=== PATIENT | female | born 1975 | race Caucasian/White ===

== ENCOUNTER 2018-01-30 15:13 | Emergency (ER) | payer MEDICAID ==
[~2018-01-30] VITALS: Ht 157.5 cm; Wt 93.9 kg
[~2018-01-30 15:13] MED LIST: NAPR-54 PO; NITR100C7 PO
[2018-01-30 15:16] VITALS: BP 138/73
--- NOTE | 2018-01-30 15:17 | NUR ---
PT CAME TO ER WITH C/O OF CHEST PAIN THAT HAD STARTED 2 DAYS AGO PT STATING 8/10 CHEST PAIN ON AND OFF. SHE HAS ALSO C/O OF SOB. PT HAS NO HISTORY MEDICALLY AND NKA. PT AMBULATED TO BED 3
--- NOTE | 2018-01-30 15:20 | NUR ---
PT AMBULATED TO BED 3
--- NOTE | 2018-01-30 15:25 | NUR ---
EKG DONE AT BEDSIDE NOTED WITH SINUS TERRANCE RYTHM.
--- NOTE | 2018-01-30 15:30 | NUR ---
LAB DRAWS DONE AT BEDSIDE.
[2018-01-30] MEDS ORDERED: LORazepam 2 MG/ML VIAL IVP ONE (16:05)
[2018-01-30 16:41] LABS: BASOPHILS % (AUTO) 0.6 % (0.0-2.0); EOSINOPHILS # (AUTO) 0.1 K/uL (0-0.4); EOSINOPHILS % (AUTO) 1.1 % (0.0-4.0); HEMATOCRIT 42.9 % (36-48); HEMOGLOBIN 14.4 g/dL (12.0-16.0); LYMPHOCYTES # (AUTO) 1.7 K/uL (2.5-16.5); LYMPHOCYTES % (AUTO) 27.6 % (20.5-51.1); MEAN CORPUSCULAR HEMOGLOBIN 29 pg (27-31); MEAN CORPUSCULAR HGB CONC 34 g/dL (33-37); MEAN CORPUSCULAR VOLUME 86.5 fL (80-94); MONOCYTES # (AUTO) 0.5 K/uL (0.8-1.0); MONOCYTES % (AUTO) 8.4 % (1.7-9.3); NEUTROPHILS # (AUTO) 3.8 K/uL (1.8-7.7); NEUTROPHILS % (AUTO) 62.3 % (42.2-75.2); PLATELET COUNT (AUTO) 233 K/uL (140-450); RED BLOOD CELL COUNT(AUTO) 4.96 MIL/uL (4.20-5.40); RED CELL DISTRIBUTION WIDTH 13.6 % (11.6-13.7); WHITE BLOOD COUNT (AUTO) 6.1 K/uL (4.8-10.8)
--- NOTE | 2018-01-30 17:04 | NUR ---
LAB CALLED NEED TO REDO VIALS THAT HAVE HEMODIALYSISED.
--- NOTE | 2018-01-30 17:17 | NUR ---
LABS AT BEDSIDE REDRAWING LABS
[2018-01-30 17:39] LABS: PROTHROMBIN TIME 9.9 secs (10.8-13.4)
[2018-01-30] MEDS ORDERED: ALBUTEROL 0.083% 2.5 MG/3 ML NEBU INH ONE (18:00)
[2018-01-30 18:16] LABS: ANION GAP 10.3 (8-16); CARBON DIOXIDE 25.4 mmol/L (21-32); CREATININE 0.7 mg/dL (0.6-1.3); POTASSIUM 3.7 mmol/L (3.5-5.1)
[2018-01-30 18:24] LABS: ALBUMIN 3.8 g/dL (3.4-5.0); TOTAL BILIRUBIN 0.3 mg/dL (0.0-1.0)
--- NOTE | 2018-01-30 18:46 | NUR ---
PENDING D/C NOTED. NO D/C PAPERS AVAULABLE. AWAITING ON ER
--- NOTE | 2018-01-30 18:59 | NUR ---
Patient discharged with v/s stable. Written and verbal after care instructions given and explained. Patient alert, oriented and verbalized understanding of instructions. Ambulatory with steady gait. All questions addressed prior to discharge. ID band removed. Patient advised to follow up with PMD. Rx of PREDNISONE AND ALBUTEROL given. Patient educated on indication of medication including possible reaction and side effects. Opportunity to ask questions provided and answered.
[2018-01-30 19:00] VITALS: BP 120/63
== END 2018-01-30 18:59 | disposition home or self-care (01) ==
LOC: MED 15:13
DX: J98.01 Acute bronchospasm (principal); Z90.49 Acquired absence of other specified parts of digestive tract
CPT/HCPCS: 36415; 71045; 80053; 83880; 84484; 85025; 85610; 85730; 93005; 96374; 99285; J2060; J7613; Q0092

== ENCOUNTER 2018-07-03 14:03 | Emergency (ER) | payer MEDICAID ==
[~2018-07-03] VITALS: Ht 160 cm; Wt 96.2 kg
[2018-07-03 14:17] VITALS: BP 149/82
--- NOTE | 2018-07-03 14:21 | NUR ---
PATIENT TAKEN TO BED #2
--- NOTE | 2018-07-03 14:30 | NUR ---
PT. CAME INTO THE ED DUE TO SOBX 1 DAY. PT. STATES " I HAVE BEEN SHORT OF BREATHE ON AND OFF BUT IT GOES AWAY BUT YESTERDAY IT GOT WORSE SO I DECIDED TO COME IN". PT. DOES NOT HAVE ANY PAIN AT THIS TIME. PT. HAS A NON PRODUCTIVE COUGH, LS: DIMINISHED THROUGHOUT. RR EVEN AND UNLABORED, SYMMETRICAL CHEST RISE NOTED, ABLE TO SPEAK IN FULL AND COMPLETE SENTENCES. 02 SAT : 98% VIA ROOM AIR AT THIS TIME. ER MD NOTIFIED. BED IN LOWEST POSITION. WILL CONTINUE TO MONITOR.
[2018-07-03] MEDS ORDERED: ALBUTEROL 0.083% 2.5 MG/3 ML NEBU INH ONE (15:35)
[2018-07-03] MEDS ORDERED: predniSONE 20 MG TAB PO ONE (15:35)
[2018-07-03] MEDS ORDERED: IPRATROPIUM 0.02% 0.5 MG/2.5 ML NEBU INH ONE (15:35)
--- NOTE | 2018-07-03 15:42 | NUR ---
CALLED RT FOR BREATHING TREATMENT
--- NOTE | 2018-07-03 15:54 | NUR ---
RT AT BEDSIDE AT THIS TIME.
--- NOTE | 2018-07-03 16:31 | NUR ---
PT. RESTING COMFORTABLY IN BED. PT STATES " I FEEL BETTER AFTER THE BREATHING TREATMENT". ER MD NOTIFIED. VSS. WILL CONTINUE TO MONITOR.
--- NOTE | 2018-07-03 17:18 | NUR ---
PT. RESTING COMFORTABLY IN BED , RR EVEN AND UNLABORED. WILL CONTINUE TO MONITOR. VSS
--- NOTE | 2018-07-03 18:12 | NUR ---
Patient discharged with v/s stable. Written and verbal after care instructions given and explained. Patient alert, oriented and verbalized understanding of instructions. Ambulatory with steady gait. All questions addressed prior to discharge. ID band removed. Patient advised to follow up with PMD. Rx of PREDNISONE , AND ALBUTEROL given. Patient educated on indication of medication including possible reaction and side effects. Opportunity to ask questions provided and answered.
[2018-07-03 18:16] VITALS: BP 140/86
== END 2018-07-03 18:12 | disposition home or self-care (01) ==
LOC: MED 14:03
DX: J20.9 Acute bronchitis, unspecified (principal); J45.909 Unspecified asthma, uncomplicated; Z79.899 Other long term (current) drug therapy
CPT/HCPCS: 71045; 94640; 99283; J7512; J7613; J7644; Q0092

== ENCOUNTER 2019-04-07 13:58 | Emergency (ER) | payer MEDICAID ==
[~2019-04-07] VITALS: Ht 157.5 cm; Wt 95.3 kg
[2019-04-07 14:06] VITALS: BP 132/74
--- NOTE | 2019-04-07 14:45 | NUR ---
DANIELE VAZ EVALUATING PT AT BEDSIDE.
--- NOTE | 2019-04-07 14:49 | NUR ---
PATIENT PRESENTS TO ED WITH C/O COUGH AND RUNNY NOSE X 2 WEEKS. DENIES N/V/; PT DENIES ANY FEVER; AFEBRILE AT THIS TIME. PATIENT STATES CHEST PAIN OF 5/10 ONLY WHEN COUGHING; VSS; PATIENT POSITIONED FOR COMFORT; HOB ELEVATED; BEDRAILS UP X1; BED DOWN. PENDING ER MD EVALUATION.
[2019-04-07] MEDS ORDERED: ALBUTEROL 0.083% 2.5 MG/3 ML NEBU INH ONE (14:50)
[2019-04-07 16:02] VITALS: BP 108/58
--- NOTE | 2019-04-07 16:03 | NUR ---
Patient discharged with v/s stable. Written and verbal after care instructions given and explained. Patient alert, oriented and verbalized understanding of instructions. Ambulatory with steady gait. All questions addressed prior to discharge. ID band removed. Patient advised to follow up with PMD. Rx of ventolin HFA INH, Medrol and promethazine syrup given. Patient educated on indication of medication including possible reaction and side effects. Opportunity to ask questions provided and answered.
== END 2019-04-07 16:03 | disposition home or self-care (01) ==
LOC: MED 13:58
DX: J20.9 Acute bronchitis, unspecified (principal); J02.9 Acute pharyngitis, unspecified; Z79.1 Long term (current) use of non-steroidal anti-inflammatories (NSAID); Z79.2 Long term (current) use of antibiotics
CPT/HCPCS: 71045; 94640; 99283; J7613; Q0092; 81025

== ENCOUNTER 2019-05-10 11:36 | Emergency (ER) | payer SELFPAY ==
[~2019-05-10] VITALS: Ht 160 cm; Wt 93.0 kg
[2019-05-10 11:40] VITALS: BP 112/81
--- NOTE | 2019-05-10 13:25 | NUR ---
PT IS A 43 Y/O FEMALE WHO PRESENTS TO THE ED C/O BUG BITE. PT STATES THAT SHE HAD A BITE TO THE BACK OF THE R KNEE X4 DAYS. PT REPORTS POPPING IT WITH PUS AND BLOOD. PT REPORTS 10/10 ACHING R KNEE PAIN THAT DOES NOT RADIATE. NOTED REDNESS AND TENDERNESS TO SITE. PT AWAKE AND ALERT, RR EVEN/UNLABORED. PT REPOSITIONED FOR COMFORT, BED IN LOWEST POSITION. ER MD DR. CHAVEZ NOTIFIED. WILL CONTINUE TO MONITOR. HX: NONE TX: NONE
[2019-05-10] MEDS ORDERED: LIDOCAINE 1% 500 MG/50 ML VIAL INJ SCH (13:35)
[2019-05-10] MEDS ORDERED: IBUPROFEN 800 MG TAB PO ONE (13:40)
[2019-05-10] MEDS ORDERED: LIDOCAINE MPF 1% - 5 mL VIAL 10 ML ONE (14:15)
--- NOTE | 2019-05-10 14:45 | NUR ---
PT RESTING IN BED, IN STABLE CONDITION
[2019-05-10 15:00] VITALS: BP 118/84
--- NOTE | 2019-05-10 15:00 | NUR ---
Patient discharged VVS. S/P I&D to right posterior knee covered with dry dressing, no drainage noted, tolerated procedure well. Written and verbal after care instructions given and explained. Patient AAOx4, verbalized understanding of instructions. Ambulatory with steady gait. All questions addressed prior to discharge. ID band removed. Patient advised to follow up with PMD. Rx of Bactrim DS 800mg-160mg tablet and motrin 800mg given. Pt provided with med ASE and benefits. Opportunity to ask questions provided and answered.
== END 2019-05-10 15:00 | disposition home or self-care (01) ==
LOC: MED 11:36
DX: L02.415 Cutaneous abscess of right lower limb (principal); J45.909 Unspecified asthma, uncomplicated; Z79.899 Other long term (current) drug therapy
CPT/HCPCS: 10060; 99283; J2001

== ENCOUNTER 2019-05-11 05:44 | Emergency (ER) | payer SELFPAY ==
[~2019-05-11] VITALS: Ht 160 cm; Wt 93.0 kg
[2019-05-11 05:50] VITALS: BP 117/65
--- NOTE | 2019-05-11 05:50 | NUR ---
TO BED # 03 AMBULATORY
--- NOTE | 2019-05-11 06:00 | NUR ---
PATIENT PRESENTS TO ED FOR WOUND CHECK, S/P I AND D RIGHT POSTERIOR THIGH YESTERDAY. DENIES N/V/D; SKIN IS PINK/WARM/DRY; AAOX4. PATIENT STATES PAIN OF 5/10 AT THIS TIME; VSS; PATIENT POSITIONED FOR COMFORT; HOB ELEVATED; BEDRAILS UP X2; BED DOWN. ER MD MADE AWARE OF PT STATUS.
--- NOTE | 2019-05-11 06:05 | NUR ---
Dr. Moreno examining patient.
[2019-05-11 06:25] VITALS: BP 117/65
--- NOTE | 2019-05-11 06:25 | NUR ---
Patient discharged with v/s stable. Written and verbal after care instructions given and explained. Patient verbalized understanding. Ambulatory with steady gait. All questions addressed prior to discharge. Advised to follow up with PMD.
== END 2019-05-11 06:25 | disposition home or self-care (01) ==
LOC: MED 05:44
DX: L02.415 Cutaneous abscess of right lower limb (principal); Z48.01 Encounter for change or removal of surgical wound dressing; J45.909 Unspecified asthma, uncomplicated; Z79.899 Other long term (current) drug therapy
CPT/HCPCS: 99282

== ENCOUNTER 2019-05-12 13:25 | Emergency (ER) | payer SELFPAY ==
[~2019-05-12] VITALS: Ht 160 cm; Wt 96.7 kg
[2019-05-12 13:33] VITALS: BP 121/74
--- NOTE | 2019-05-12 13:40 | NUR ---
PATIENT AMBULATED TO BED 9
--- NOTE | 2019-05-12 13:58 | NUR ---
RETURNED TODAY FOR F/U WOUND CARE---SEEN MAY 09 AND FOR WOUND I&D THEN DRESSING CHANGE---PT ADMITS PAIN HAD DECREASED--AMBULATORY WITH STEADY GAIT.
[2019-05-12 14:00] VITALS: BP 121/74
== END 2019-05-12 14:00 | disposition home or self-care (01) ==
LOC: MED 13:25
DX: L02.415 Cutaneous abscess of right lower limb (principal); J45.909 Unspecified asthma, uncomplicated; Z79.2 Long term (current) use of antibiotics; Z88.6 Allergy status to analgesic agent
CPT/HCPCS: 99281

== ENCOUNTER 2019-05-14 17:29 | Emergency (ER) | payer SELFPAY ==
[~2019-05-14] VITALS: Ht 162.6 cm; Wt 96.2 kg
[2019-05-14 17:46] VITALS: BP 113/74
--- NOTE | 2019-05-14 17:49 | NUR ---
PT TO WAIT IN ER LOBBY. AA0X4. VSS
--- NOTE | 2019-05-14 18:36 | NUR ---
PATIENT AMBULATED TO BED 3 AT THIS TIME.
--- NOTE | 2019-05-14 18:45 | NUR ---
PT C/O WOUND CHECK AFTER I&D PERFORMED ON SATURDAY. PAIN 12/21. SITE COVERED WITH BANDAGE AT THIS TIME. VSS; PATIENT POSITIONED FOR COMFORT; HOB ELEVATED; BEDRAILS UP X1; BED DOWN. ER MD MADE AWARE OF PT STATUS.
--- NOTE | 2019-05-14 19:16 | NUR ---
REPORT GIVEN TO POOJA JACQUES. TRANSFERED CARE AT THIS TIME.
--- NOTE | 2019-05-14 21:11 | NUR ---
Dr. Mena examining patient.
[2019-05-14] MEDS: LIDOCAINE/EPI 1% 1:100000 20 ML VIAL INJ STA (23:15)
--- NOTE | 2019-05-14 23:15 | NUR ---
MD @ bedside. performed, I/D on wound to posterior of L thigh and RLQ abdomen. Lidocaine admin by MD, minimal serosanguinous drainage noted. L thigh packed and 4x4 dressing placed, secured by tape. RLQ abdomen wound 4x4 dressing placed, scant serosanguinous drainage noted. pt tolerated procedure well. Gurney locked and in lowest position.
[2019-05-14 23:40] VITALS: BP 108/62
--- NOTE | 2019-05-14 23:40 | NUR ---
Patient discharged with v/s stable. Written and verbal after care instructions given and explained. Patient verbalized understanding. Ambulatory with steady gait. All questions addressed prior to discharge. Advised to follow up ON SATURDAY FOR FOLLOWUP WOUND CHECK.
== END 2019-05-14 23:40 | disposition home or self-care (01) ==
LOC: MED 17:29
DX: L02.416 Cutaneous abscess of left lower limb (principal); M25.562 Pain in left knee; L02.211 Cutaneous abscess of abdominal wall; J45.909 Unspecified asthma, uncomplicated; Z79.2 Long term (current) use of antibiotics; Z79.1 Long term (current) use of non-steroidal anti-inflammatories (NSAID)
CPT/HCPCS: 99283; J2001

== ENCOUNTER 2019-05-16 15:52 | Emergency (ER) | payer MEDICAID ==
[~2019-05-16] VITALS: Ht 160 cm; Wt 96.2 kg
[2019-05-16 16:00] VITALS: BP 119/80
--- NOTE | 2019-05-16 16:20 | NUR ---
RETURNING FOR WOUND RECHECK. PT WAS HERE IN [facility] 05/10/2019 FOR ABSCESS DRAINAGE AND PACKING TO BACK OF R KNEE. PT CAME BACK ON 05/12/2019 FOR WOUND RECHECK, WOUND PACKING WAS DONE DUE TO WOUND NOT HEALING WELL AND WAS TOLD TO COME BACK IN 2 DAYS FOR F/U.
--- NOTE | 2019-05-16 16:45 | NUR ---
LIDOCAINE AND SUTURE KIT AT BEDSIDE
[2019-05-16] MEDS ORDERED: LIDOCAINE MPF 1% - 5 mL VIAL 10 ML ONE (16:51)
--- NOTE | 2019-05-16 16:52 | NUR ---
DR. OWEN AT BEDSIDE PERFORMING SUTURE/PACKING
[2019-05-16] MEDS ORDERED: LIDOCAINE MPF 1% 5mL VIAL INJ ONE ×2 (16:55→17:15)
[2019-05-16] MEDS ORDERED: BACITRACIN OINT 500 UNITS/GM PKT TP ONE ×2 (17:15→17:19)
[2019-05-16 17:19] VITALS: BP 119/80
== END 2019-05-16 17:20 | disposition home or self-care (01) ==
LOC: MED 15:52
DX: S81.011A Laceration without foreign body, right knee, initial encounter (principal); J45.909 Unspecified asthma, uncomplicated; Z79.899 Other long term (current) drug therapy; Y83.8 Other surgical procedures as the cause of abnormal reaction of the patient, or of later complication, without mention of misadventure at the time of the procedure
CPT/HCPCS: 12001; 99283; J2001

== ENCOUNTER 2019-05-24 12:15 | Emergency (ER) | payer MEDICAID ==
[~2019-05-24] VITALS: Ht 157.5 cm; Wt 97.5 kg
[2019-05-24 12:27] VITALS: BP 109/57
--- NOTE | 2019-05-24 12:31 | NUR ---
WAIT AT LOBBY
--- NOTE | 2019-05-24 12:53 | NUR ---
PT AMB TO BED 6
--- NOTE | 2019-05-24 12:55 | NUR ---
BIB FAMILY FOR SUTURE REMOVAL AT BACK OF RIGHT LEG. SKIN IS PINK/WARM/DRY; AAOX4 WITH EVEN AND STEADY GAIT; PATIENT STATES PAIN OF 0/10 AT THIS TIME; PATIENT POSITIONED FOR COMFORT; HOB ELEVATED; BEDRAILS UP X1; BED DOWN. ER MD MADE AWARE OF PT STATUS.
--- NOTE | 2019-05-24 13:03 | NUR ---
DR OWEN AT BEDSIDE
[2019-05-24] MEDS ORDERED: BACITRACIN OINT 500 UNITS/GM PKT TP ONE (13:20)
--- NOTE | 2019-05-24 13:25 | NUR ---
SITE CLEANED AND WRAPPED BY TIMOTHY BURRIS
[2019-05-24 13:28] VITALS: BP 112/60
--- NOTE | 2019-05-24 13:28 | NUR ---
Patient discharged with v/s stable. Written and verbal after care instructions given and explained. Patient alert, oriented and verbalized understanding of instructions. Ambulatory with steady gait. All questions addressed prior to discharge. ID band removed. Patient advised to follow up with PMD. Rx of BACITRACIN given. Patient educated on indication of medication including possible reaction and side effects. Opportunity to ask questions provided and answered. PT INSTRUCTED TO CONTINUE TAKING ANTIBIOTICS, CONTINUE TO WARM COMPRESS TO BACK OF LEG.
[2019-05-24] MEDS ORDERED: NEOMYCIN/POLYMYXIN/BACITRACIN 0.9 GM/1 PKT TP ONE ×2 (13:32→13:35)
== END 2019-05-24 13:28 | disposition home or self-care (01) ==
LOC: MED 12:15
DX: S81.011D Laceration without foreign body, right knee, subsequent encounter (principal); J45.909 Unspecified asthma, uncomplicated; Z79.899 Other long term (current) drug therapy; X58.XXXD Exposure to other specified factors, subsequent encounter
CPT/HCPCS: 99283

== ENCOUNTER 2020-11-15 13:24 | Emergency (ER) | payer MEDICAID ==
[~2020-11-15] VITALS: Ht 157.5 cm; Wt 99.8 kg
[2020-11-15 13:28] VITALS: BP 131/82
--- NOTE | 2020-11-15 13:29 | NUR ---
Patient ambulated to bed 3.
--- NOTE | 2020-11-15 13:35 | NUR ---
44 Y/O F COMING IN FROM HOME WITH C/C SHORTNESS OF BREATH. PT STATES SHE TESTED POSITIVE FOR COVID ON 10/19/2020, AND TESTED NEGATIVE ON 11/02/2020. PT STATES 4 DAYS AGO, SHE NOTICED SHORTNESS OF BREATH UPON EXERTION DURING WORK. PT DENIES CHEST PAIN, ABDOMINAL PAIN, DIZZINESS, BLURRY VISION, HEADACHE, FEVER/CHILLS, COLD LIKE SYMPTOMS. 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 LUNG SOUNDS CTA. EQUAL CHEST RISE AND FALL, RESPIRATIONS EVEN/UNLABORED. BED LOCKED IN LOWEST POSITION, SIDE RAILS X 1, CALL LIGHT IN REACH. PMH/MEDS: DENIES SCAR
--- NOTE | 2020-11-15 13:45 | NUR ---
ERMD AT BEDSIDE EVALUATING PATIENT.
--- NOTE | 2020-11-15 14:11 | NUR ---
Note undone in EDM - 11/15/20 at 1411 by [facility] 44 Y/O F COMING IN FROM HOME WITH C/C SHORTNESS OF BREATH. PT STATES SHE TESTED POSITIVE FOR COVID ON 10/19/2020, AND TESTED NEGATIVE ON 11/02/2020. PT STATES 4 DAYS AGO, SHE NOTICED SHORTNESS OF BREATH UPON EXERTION DURING WORK. PT DENIES CHEST PAIN, ABDOMINAL PAIN, DIZZINESS, BLURRY VISION, HEADACHE, FEVER/CHILLS, COLD LIKE SYMPTOMS. 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 LUNG SOUNDS CTA. EQUAL CHEST RISE AND FALL, RESPIRATIONS EVEN/UNLABORED. BED LOCKED IN LOWEST POSITION, SIDE RAILS X 1, CALL LIGHT IN REACH. PMH/MEDS: DENIES SCAR
--- NOTE | 2020-11-15 14:15 | NUR ---
PT RESTING IN POSITION OF COMFORT. ALL PT NEEDS MET AT THIS TIME. PLANNING MANAGER IN PLACE. BED LOCKED IN LOWEST POSITION, SIDE RAILS X 1.
[2020-11-15 14:17] VITALS: BP 127/78
== END 2020-11-15 14:17 | disposition home or self-care (01) ==
LOC: MED 13:24
DX: R06.00 Dyspnea, unspecified (principal); Z79.899 Other long term (current) drug therapy
CPT/HCPCS: 99283

== ENCOUNTER 2021-01-25 15:51 | Emergency (ER) | payer MEDICAID ==
[~2021-01-25] VITALS: Ht 160 cm; Wt 95.3 kg
[2021-01-25 16:14] VITALS: BP 133/87
--- NOTE | 2021-01-25 16:17 | NUR ---
C/O 04/22 PAINFUL URINATION, LOWER ABDOMINAL PAIN, LOWER BACK PAIN X 3 DAYS. PMH: DENIES.DENIES N/V/D; SKIN IS PINK/WARM/DRY; AAOX4 WITH EVEN AND STEADY GAIT; LUNGS CLEAR BL; HR EVEN AND REGULAR; PT DENIES ANY FEVER, CP, SOB, OR COUGH AT THIS TIME. PATIENT POSITIONED FOR COMFORT; HOB ELEVATED; BEDRAILS UP X1; BED DOWN. ER MD MADE AWARE OF PT STATUS.
[2021-01-25] MEDS ORDERED: CEPH500T PO (16:32)
[2021-01-25] MEDS ORDERED: PYR100 PO (16:32)
[2021-01-25] MEDS ORDERED: ACET-9800 PO (16:32)
[2021-01-25] MEDS ORDERED: KETOROLAC 30 MG/ML VIAL IM ONE (16:40)
[2021-01-25 16:51] VITALS: BP 120/80
--- NOTE | 2021-01-25 16:51 | NUR ---
Patient discharged with v/s stable. Written and verbal after care instructions given and explained. Patient alert, oriented and verbalized understanding of instructions. Ambulatory with steady gait. All questions addressed prior to discharge. ID band removed. Patient advised to follow up with PMD. Rx of Cephalexin, Phenazopyridine, Acetaminophen given. Patient educated on indication of medication including possible reaction and side effects. Opportunity to ask questions provided and answered.
== END 2021-01-25 16:51 | disposition home or self-care (01) ==
LOC: MED 15:51
DX: N39.0 Urinary tract infection, site not specified (principal); J45.909 Unspecified asthma, uncomplicated; Z79.899 Other long term (current) drug therapy
CPT/HCPCS: 81002; 81025; 96372; 99283; J1885

== ENCOUNTER 2021-05-25 11:54 | Emergency (ER) | payer MEDICAID ==
[~2021-05-25] VITALS: Ht 157.5 cm; Wt 96.6 kg
[~2021-05-25 11:54] MED LIST changes: +ACET-9800 PO; +CEPH500T PO; +PYR100 PO
[2021-05-25 12:08] VITALS: BP 121/82
--- NOTE | 2021-05-25 12:11 | NUR ---
UA SPECIMEN COLLECTED AND ASKED PATIENT TO WAIT IN ER LOBBY FOR MSE.
[2021-05-25] MEDS ORDERED: CEPH-588 PO (12:57)
[2021-05-25] MEDS ORDERED: PYR100 PO (12:57)
--- NOTE | 2021-05-25 13:25 | NUR ---
Patient discharged with v/s stable. Written and verbal after care instructions given and explained. Patient alert, oriented and verbalized understanding of instructions. Ambulatory with steady gait. All questions addressed prior to discharge. ID band removed. Patient advised to follow up with PMD. Rx of Cephalexin and Pyridium given. Patient educated on indication of medication including possible reaction and side effects. Opportunity to ask questions provided and answered.
== END 2021-05-25 13:25 | disposition home or self-care (01) ==
LOC: MED 11:54
DX: N39.0 Urinary tract infection, site not specified (principal)
CPT/HCPCS: 81002; 81025; 87086; 99283

== ENCOUNTER 2021-11-08 12:50 | Emergency (ER) | payer MEDICAID ==
[~2021-11-08] VITALS: Ht 157.5 cm; Wt 99.8 kg
[~2021-11-08 12:50] MED LIST changes: +CEPH-588 PO
[2021-11-08 13:00] VITALS: BP 153/71
--- NOTE | 2021-11-08 13:05 | NUR ---
PT TO WAIT IN LOBBY
[2021-11-08] MEDS ORDERED: NAPR-54 PO (13:17)
[2021-11-08 13:30] VITALS: BP 153/71
== END 2021-11-08 13:32 | disposition home or self-care (01) ==
LOC: MED 12:50
DX: M72.2 Plantar fascial fibromatosis (principal); J45.909 Unspecified asthma, uncomplicated; Z79.899 Other long term (current) drug therapy
CPT/HCPCS: 99282